=== PATIENT | male | born 1995 | race Caucasian/White ===

== ENCOUNTER 2020-04-06 21:17 | Emergency (ER) | payer OTHER ==
[~2020-04-06] VITALS: Ht 188 cm; Wt 101.4 kg
[2020-04-07 00:14] LABS: BASO % 0.5 % (0.0-1.0); EOS # 0.4 10^3/uL (0.0-0.5); EOS % 5.7 % (0.0-3.0); HEMATOCRIT 46.7 % (42.0-52.0); HEMOGLOBIN 16.1 g/dl (13.5-17.5); LYMPH # 2.3 10^3/uL (1.5-5.0); LYMPH % 30.7 % (24.0-44.0); MEAN CORPUSCULAR HEMOGLOBIN 30.1 pg (27.0-33.0); MEAN CORPUSCULAR HGB CONC 34.5 g/dl (32.0-36.5); MEAN CORPUSCULAR VOLUME 87.3 fl (80.0-96.0); MONO # 0.7 10^3/uL (0.0-0.8); MONO % 9.1 % (0.0-5.0); NEUTROPHILS % 53.7 % (36.0-66.0); PLATELET COUNT, AUTOMATED 323 10^3/uL (150-450); RED BLOOD COUNT 5.35 10^6/uL (4.30-6.10); WHITE BLOOD COUNT 7.5 10^3/uL (4.0-10.0)
[2020-04-07 00:36] LABS: CK-MB VALUE MASS 1.4 NG/ML (<3.6); CPK CREATINE PHOSPHOKINASE 199 U/L (39-308); TROPONIN I < 0.02 NG/ML (< 0.10)
[2020-04-07 00:43] LABS: ERYTHROCYTE SEDIMENTATION RATE 1 mm/hr (0-15)
--- NOTE | 2020-04-07 01:29 | REPVR ---
PROCEDURE INFORMATION: Exam: XR Chest, 2 Views Exam date and time: 04/06/2020 11:45 PM Age: 24 years old Clinical indication: Chest pain TECHNIQUE: Imaging protocol: XR of the chest Views: 2 views. COMPARISON: No relevant prior studies available. FINDINGS: Lungs: Unremarkable. No consolidation. No pulmonary edema. Pleural space: Unremarkable. No pleural effusion or pneumothorax is identified. Heart/Mediastinum: Unremarkable. No cardiomegaly. Bones/joints: Unremarkable. Gastrointestinal tract: There is a dilated loop of jejunum in the left upper quadrant of the abdomen measuring 4.4 cm in diameter. The bowel was not fully imaged. IMPRESSION: 1. No radiographic evidence for an acute cardiopulmonary process. 2. Nonspecific dilated loop of jejunum in the left upper quadrant of the abdomen. Electronically signed by: Gulshan Kapadia On 04/07/2020 01:29:17 AM
[2020-04-07 01:36] VITALS: BP 129/81
--- NOTE | 2020-04-07 15:28 | ECGEPIP ---
[facility] - ED Test Date: 2020-04-06 Pat Name: VINAY SINGH Department: Room: - Gender: Male [employer] Coverer: KG : 1995 Requested By: JOSEPH Colbert Order Number: [id number] Reading MD: Kavya Catherine Measurements Intervals [place] Rate: 67 P: 49 MS: 172 QRS: 14 QRSD: 99 T: 23 QT: 370 QTc: 391 Interpretive Statements SINUS RHYTHM NO PRIOR Electronically Signed on 04-07-2020 15:28:11 EDT by Kavya Catherine
== END 2020-04-07 01:38 | disposition home or self-care (01) ==
LOC: M ED 21:17
DX: R07.89 Other chest pain (principal); R20.2 Paresthesia of skin; Z82.49 Family history of ischemic heart disease and other diseases of the circulatory system

== ENCOUNTER → 2020-08-12 | Outpatient (CLI) | payer SELFPAY | LOC: M LABSMTC 12:03 | PROVIDERS: ATTEND Pediatrics | DX: Z20.822 Contact with and (suspected) exposure to COVID-19 (principal) ==